=== PATIENT | female | born 1995 | race Caucasian/White ===

== ENCOUNTER 2017-11-25 09:20 | Day surgery (SDC) | payer OTHER ==
[2017-11-25] MEDS: NS 1,000 ML IV (10:00)
[2017-11-25] MEDS ORDERED: GLYCOPYRROLATE INJ 0.2 MG/ML 2 ML VIAL As Ordered (10:16)
[2017-11-25] MEDS ORDERED: LIDOCAINE 2% INJ 100 MG/5 ML SDV (FOR ANES.) As Ordered (10:16)
[2017-11-25] MEDS ORDERED: PROPOFOL 500 MG/50 ML VIAL As Ordered (10:16)
== END 2017-11-25 11:17 | disposition home or self-care (01) ==
LOC: M OPP 09:20
DX: K62.5 Hemorrhage of anus and rectum (principal); R12 Heartburn; R11.10 Vomiting, unspecified; K59.00 Constipation, unspecified; K22.8 Other specified diseases of esophagus; K44.9 Diaphragmatic hernia without obstruction or gangrene; K21.9 Gastro-esophageal reflux disease without esophagitis; Z79.899 Other long term (current) drug therapy; Z80.3 Family history of malignant neoplasm of breast; Z80.42 Family history of malignant neoplasm of prostate
CPT/HCPCS: 45378